=== PATIENT | female | born 1935 | race Caucasian/White ===

== ENCOUNTER → 2017-12-25 | Outpatient (CLI) | payer MEDICARE ==
--- NOTE | 2017-12-25 16:00 | XR ---
EXAMINATION TYPE: XR chest 2V DATE OF EXAM: 12/25/2017 COMPARISON: Prior chest 12/30/2012 HISTORY: Left-sided chest pain, atrioventricular block TECHNIQUE: Frontal and lateral views of the chest are obtained. FINDINGS: Findings are stable. Pacemaker is unchanged. Leads are present in the right atrium and destiney tricle. Arthropathy noted in the shoulders. There is progression of the arthropathy in the right shou lder. No pneumothorax or pleural effusion. Pulmonary vascularity and henrietta are unchanged. No evident a irspace disease. IMPRESSION: No acute cardiopulmonary process. Additional findings above.
== END | disposition home or self-care (01) ==
LOC: RADXRMAIN 14:43
PROVIDERS: ATTEND Internal Medicine Cardiovascular Disease
DX: I44.2 Atrioventricular block, complete (principal); Z95.0 Presence of cardiac pacemaker
CPT/HCPCS: 71046

== ENCOUNTER 2018-11-04 06:46 | Day surgery (SDC) | payer MEDICARE ==
[2018-10-30 11:10] VITALS: BMI 25.4
[~2018-11-04 06:46] MED LIST: LACTATED RINGERS 1,000 ML IV SCH; LIDOCAINE 1% 20 ML VIAL (10MG/ML) FOR IV START INTRADERMA PRN; TETRACAINE 0.5% OPHTH (PF) DROPS 4 ML BTL OP ONE
[2018-11-04] MEDS: CYCLOPENTOLATE 1% OPHTH SOLN 2 ML BTL OP ONE ×3 (07:08→07:18)
[2018-11-04 07:11] VITALS: TEMP 97.5
[2018-11-04] MEDS: PHENYLEPHRINE 2.5% OPHTH DRP 2ML OP NR ×3 (07:12→07:21)
[2018-11-04 07:14] LABS: Glucose,Whole Blood 141 mg/dL (75-99)
[2018-11-04] MEDS ORDERED: MIDAZOLAM 2 MG/2 ML VIAL ONE (08:10)
[2018-11-04] MEDS ORDERED: fentaNYL (PF) 50 MCG/ML 2 ML AMP ONE (08:10)
[2018-11-04] MEDS ORDERED: EPINEPHrine (PF) 0.3 ML in BALANCED SALT IRRIG SOLN COMB2 500 ML IRRIGATION ONE (08:18)
[2018-11-04] MEDS ORDERED: BALANCED SALT IRRIG SOLN COMB2 15 ML IRRIG.SOLN INTRAOCULA ONE ×2 (08:19→08:24)
[2018-11-04] MEDS ORDERED: DUOVISC KIT (GREEN BOX) INTRAOCULA ONE ×2 (08:19→08:24)
[2018-11-04] MEDS ORDERED: LIDOCAINE 1% (PF) 10MG/ML VIAL SQ ONE ×2 (08:19→08:24)
[2018-11-04] MEDS: MOXIFLOXACIN HCL 0.5% DROPS 3 ML BTL OP ONE ×2 (08:19→08:25)
[2018-11-04] MEDS: TIMOLOL 0.5% OPHTH DROPS 5 ML BTL OP ONE ×2 (08:20→08:25)
--- NOTE | 2018-11-04 08:38 | P.OP ---
Date of Procedure: 11/04/18 Preoperative Diagnosis: NS & CS Postoperative Diagnosis: same Procedure(s) Performed: PIOL, OS Implants: PCB00 21.00 Anesthesia: MAC Surgeon: Fredrick Mesa Estimated Blood Loss (ml): 0 Pathology: none sent Condition: stable Disposition: same day Indications for Procedure: blurry vision Operative Findings: No complications
[2018-11-04 09:03] VITALS: BP 106/58; PULSE 66; RESP 16
--- NOTE | 2018-11-05 05:44 | OP ---
OPERATIVE REPORT DATE OF SURGERY: November 04, 2018. SURGEON: Dr. Fredrick Mesa PREOPERATIVE DIAGNOSIS: Nuclear sclerosis, cortical sclerosis. POSTOPERATIVE DIAGNOSIS: Nuclear sclerosis, cortical sclerosis. OPERATION: Phacoemulsification of cataract and intraocular lens implant of the left eye. ESTIMATED BLOOD LOSS: Zero. SPECIMEN TAKEN: None. NARRATIVE: After obtaining the appropriate consent, the patient was brought to the Operating Room where the patient was placed under cardiac monitoring and prepped and draped in the usual sterile manner. At the 5 o'clock position a 15 degree super sharp blade was used to create a paracentesis followed by instillation of 1% Xylocaine MPF 50:50 mix with BSS into the anterior chamber. This was followed by Duovisc to stabilize the anterior chamber. At the 3 o'clock position a self-sealing corneal flap incision was created using 2.8 mm breonna keratome. A cystotome was used to initiate a continuous tear capsulorrhexis which was completed with the Utrata forceps. A Binkhorst cannula was used to hydrodissect the lens nucleus followed by hydrodelineation. Phacoemulsification of the lens was performed utilizing phaco chop in 13 seconds at 9% power. The remaining cortical material was removed using the irrigation aspiration mode followed by additional 1% Xylocaine MPF into the anterior chamber followed by viscoelastic to stabilize the capsular bag. An TWAN PCB00 21.0 diopters posterior chamber lens was placed into the capsular bag without difficulty. The remaining viscoelastic material was removed from the anterior chamber with the irrigation/aspiration. Balanced salt solution was used to normalize the intraocular pressure. The incision was checked for watertight integrity. The patient then received two drops of 0.5% timolol followed by two drops Vigamox, was lightly patched and shielded in the usual manner. There were no complications from the procedure. The patient tolerated the procedure well and was returned to recovery in good condition. MMODL / IJN: [id number] /
== END 2018-11-04 09:12 | disposition home or self-care (01) ==
LOC: OR 06:46
PROVIDERS: ATTEND Ophthalmology
DX: H25.812 Combined forms of age-related cataract, left eye (principal); H04.209 Unspecified epiphora, unspecified side; H00.026 Hordeolum internum left eye, unspecified eyelid; H00.023 Hordeolum internum right eye, unspecified eyelid; H52.223 Regular astigmatism, bilateral; H52.03 Hypermetropia, bilateral; H52.4 Presbyopia; I11.9 Hypertensive heart disease without heart failure; E11.9 Type 2 diabetes mellitus without complications; E78.5 Hyperlipidemia, unspecified; Z95.0 Presence of cardiac pacemaker; R00.1 Bradycardia, unspecified; G43.909 Migraine, unspecified, not intractable, without status migrainosus; H90.5 Unspecified sensorineural hearing loss; Z79.84 Long term (current) use of oral hypoglycemic drugs; Z79.899 Other long term (current) drug therapy; Z83.3 Family history of diabetes mellitus; Z82.49 Family history of ischemic heart disease and other diseases of the circulatory system
CPT/HCPCS: 66984; C1780; J2250; J0171; J3010; J2001

== ENCOUNTER 2018-12-02 09:20 | Day surgery (SDC) | payer MEDICARE ==
[2018-11-26 15:17] VITALS: BMI 24.0
[~2018-12-02 09:20] MED LIST changes: -LIDOCAINE 1% 20 ML VIAL (10MG/ML) FOR IV START INTRADERMA PRN; +MOXIFLOXACIN HCL 0.5% DROPS 3 ML BTL OP ONE; +TIMOLOL 0.5% OPHTH DROPS 5 ML BTL OP ONE
[2018-12-02 10:11] VITALS: TEMP 98.1
[2018-12-02] MEDS: PHENYLEPHRINE 2.5% OPHTH DRP 2ML OP NR ×3 (10:14→10:27)
[2018-12-02] MEDS: CYCLOPENTOLATE 1% OPHTH SOLN 2 ML BTL OP ONE ×3 (10:17→10:30)
[2018-12-02 10:25] LABS: Glucose,Whole Blood 137 mg/dL (75-99)
[2018-12-02] MEDS ORDERED: MIDAZOLAM 2 MG/2 ML VIAL ONE (11:05)
[2018-12-02] MEDS ORDERED: HYALURONATE SODIUM INTRAOCULAR 1 EACH SYRINGE (10MG/ML) INTRAOCULA ONE (11:19)
[2018-12-02] MEDS ORDERED: CHONDROITIN-SOD HYALURONATE 1 EACH SYRINGE (0.75 ML) INTRAOCULA ONE (11:19)
[2018-12-02] MEDS ORDERED: BALANCED SALT IRRIG SOLN COMB2 15 ML IRRIG.SOLN INTRAOCULA ONE (11:19)
[2018-12-02] MEDS ORDERED: LIDOCAINE 1% (PF) 10MG/ML VIAL SQ ONE (11:20)
[2018-12-02] MEDS ORDERED: EPINEPHrine (PF) 0.3 ML in BALANCED SALT IRRIG SOLN COMB2 500 ML IRRIGATION ONE (11:20)
[2018-12-02] MEDS ORDERED: DUOVISC KIT (GREEN BOX) INTRAOCULA ONE (11:36)
--- NOTE | 2018-12-02 11:39 | P.OP ---
Date of Procedure: 12/02/18 Preoperative Diagnosis: NS & CS Postoperative Diagnosis: same Procedure(s) Performed: PIOL< OD Implants: PCB00 21.50 Anesthesia: MAC Surgeon: Fredrick Mesa Estimated Blood Loss (ml): 0 Pathology: none sent Condition: stable Disposition: same day Indications for Procedure: blurry vision Operative Findings: no complications
[2018-12-02 11:46] VITALS: RESP 18
[2018-12-02 12:08] VITALS: BP 102/58; PULSE 66
--- NOTE | 2018-12-02 22:41 | OP ---
OPERATIVE REPORT DATE OF SURGERY: December 02, 2018. PROCEDURE PERFORMED: Phacoemulsification of cataract and intraocular lens implant of the right eye. PREOPERATIVE DIAGNOSES: Nuclear sclerosis. Cortical sclerosis. POSTOPERATIVE DIAGNOSES: Nuclear sclerosis. Cortical sclerosis. OPERATION: Clear cornea phacoemulsification of cataract right OD eye. ESTIMATED BLOOD LOSS: Zero. SPECIMEN TAKEN: None. NARRATIVE: After obtaining the appropriate consent, the patient was brought to the Operating Room where the patient was placed under cardiac monitoring and prepped and draped in the usual sterile manner. At the 11 o'clock position a 15 degree super sharp blade was used to create a paracentesis followed by instillation of 1% Xylocaine MPF 50:50 mix with BSS into the anterior chamber. This was followed by Duovisc to stabilize the anterior chamber. At the 9 o'clock position a self-sealing corneal flap incision was created using 2.8 mm breonna keratome. A cystatome was used to initiate a continuous tear capsulorrhexis which was completed with the Utrata forceps. A Binkhorst cannula was used to hydrodissect the lens nucleus followed by hydrodelineation. Phacoemulsification of the lens was performed utilizing phaco-chop in 19.84 seconds at 11% power. The remaining cortical material was removed using the irrigation aspiration mode followed by additional 1% Xylocaine MPF into the anterior chamber followed by viscoelastic to stabilize the capsular bag. An [employer] model PZB 00 21.5 diopter posterior chamber lens was placed into the capsular bag without difficulty. The remaining viscoelastic material was removed from the anterior chamber with the irrigation/aspiration. Balanced salt solution was used to normalize the intraocular pressure. The incision was checked for watertight integrity. The patient then received two drops of 0.5% timolol followed by two drops Vigamox, was lightly patched and shielded in the usual manner. There were no complications from the procedure. The patient tolerated the procedure well and was returned to recovery in good condition. MMODL / IJN: [id number] /
== END 2018-12-02 12:31 | disposition home or self-care (01) ==
LOC: OR 09:20
PROVIDERS: ATTEND Ophthalmology
DX: E11.36 Type 2 diabetes mellitus with diabetic cataract (principal); I10 Essential (primary) hypertension; H00.026 Hordeolum internum left eye, unspecified eyelid; H00.023 Hordeolum internum right eye, unspecified eyelid; H52.03 Hypermetropia, bilateral; H52.223 Regular astigmatism, bilateral; H52.4 Presbyopia; G43.909 Migraine, unspecified, not intractable, without status migrainosus; Z98.42 Cataract extraction status, left eye; Z96.1 Presence of intraocular lens; Z79.899 Other long term (current) drug therapy; Z79.84 Long term (current) use of oral hypoglycemic drugs; Z95.0 Presence of cardiac pacemaker; Z79.82 Long term (current) use of aspirin
CPT/HCPCS: 66984; C1780; J2250; J0171; J2001

== ENCOUNTER → 2021-04-13 | Outpatient (CLI) | payer MEDICARE ==
--- NOTE | 2021-04-13 15:13 | BD ---
EXAMINATION TYPE: Axial Bone Density DATE OF EXAM: 04/13/2021 COMPARISON: NONE CLINICAL HISTORY: 85 YR OLD FEMALE....ICD-10 CODE: M85.88 DISORDER OF BD Height: 58.3 Weight: 122 FRAX RISK QUESTIONS: NOTHING ADDITIONAL TO ADD HERE RISK FACTORS HISTORY OF: Postmenopausal woman: AT AGE 49 YRS OLD Lost more than 2 inches in height since high school: YES Frequent falls: UNSTEADY GAIT Hyperparathyroidism: NO Adrenal Insufficiency: NO MEDICATIONS: Additional Medications: BP MEDS, METFORMIN, ANTI SEIZURE, AND MIGRAINE MEDS Additional History: HYPERTENSION, DIABETIC, MIGRAINE HEADACHES, EXAM MEASUREMENTS: Bone mineral densitometry was performed using the [employer] System. Bone mineral density as measured about the Lumbar spine is: ----- L1-L4(G/cm2): 1.553 T Score Values are as follows: -----L1: 2.1 ----- L2: 2.2 ----- L3: 2.6 ----- L4: 5.3 ----- L1-L4: 3.1 Bone mineral density PT STATES IT IS HER FIRST DEXA SCAN......BASELINE Bone mineral density about the R hip (g/cm2): 0.779 Bone mineral density about the L hip (g/cm2): 0.840 T Score values are as follows: -----R Neck: -2.0 -----L Neck: -2.2 -----R Total: -1.8 -----L Total: -1.3 Bone mineral density FIRST DEXA........BASELINE STUDY FRAX%S: THERE IS A 16.8% CHANCE FOR A MAJOR OSTEOPOROTIC FX AND A 5.7% FOR HIP......PROBABILITY FO R FX IN 10 YRS TIME IMPRESSION: Osteopenia (T Score between -2.5 and -1). There is slightly increased risk of fracture and the patient may be considered for treatment. Re-Screen 2-5 years. NOTE: T-SCORE=SD OF THE YOUNG ADULT MEAN.
== END | disposition home or self-care (01) ==
LOC: RADBDWWP 09:46
PROVIDERS: ATTEND Internal Medicine
DX: M85.89 Other specified disorders of bone density and structure, multiple sites (principal); I10 Essential (primary) hypertension; Z13.820 Encounter for screening for osteoporosis; E11.9 Type 2 diabetes mellitus without complications
CPT/HCPCS: 77080

== ENCOUNTER 2021-04-23 05:51 | Day surgery (SDC) | payer MEDICARE ==
[2021-04-19 14:53] VITALS: BMI 22.8
[2021-04-23] MEDS ORDERED: MIDAZOLAM 2 MG/2 ML VIAL IV PRN (06:04)
[2021-04-23] MEDS ORDERED: LACTATED RINGERS 1,000 ML IV SCH (06:04)
[2021-04-23] MEDS ORDERED: SODIUM CHLORIDE 0.9% 1,000 ML IV SCH ×2 (06:04)
[2021-04-23] MEDS ORDERED: ceFAZolin 1 GM in SODIUM CHLORIDE 0.9% 250 ML IRRIGATION PRN (06:30)
[2021-04-23 06:41] LABS: Glucose,Whole Blood 155 mg/dL (75-99)
[2021-04-23 06:47] VITALS: RESP 18; TEMP 97.9
[2021-04-23] MEDS ORDERED: HYDROmorphone 0.5 MG/0.5 ML SYRINGE IVP PRN (07:00)
[2021-04-23] MEDS ORDERED: MIDAZOLAM 2 MG/2 ML VIAL ONE (07:14)
[2021-04-23] MEDS ORDERED: PROPOFOL 10 MG/ML 20 ML VIAL IV ONE (07:14)
[2021-04-23] MEDS ORDERED: fentaNYL (PF) 50 MCG/ML 2 ML AMP ONE (07:14)
[2021-04-23 07:23] LABS: Basophils # (A) 0.1 k/uL (0-0.2); Basophils % (A) 1 %; Eosinophils # (A) 0.2 k/uL (0-0.7); Eosinophils % (A) 2 %; HCT 37.9 % (34.0-46.0); HGB 12.7 gm/dL (11.4-16.0); Lymphocytes # (A) 1.7 k/uL (1.0-4.8); Lymphocytes % (A) 16 %; MCH 30.6 pg (25.0-35.0); MCHC 33.5 g/dL (31.0-37.0); MCV 91.2 fL (80.0-100.0); Mean Platelet Volume 8.1; Monocytes # (A) 0.5 k/uL (0-1.0); Monocytes % (A) 5 %; Neutrophils # (A) 7.8 k/uL (1.3-7.7); Neutrophils % (A) 75 %; Platelet Count 296 k/uL (150-450); RBC 4.15 m/uL (3.80-5.40); RDW 12.8 % (11.5-15.5); WBC 10.5 k/uL (3.8-10.6)
[2021-04-23] MEDS ORDERED: LIDOCAINE 1% INJ 10MG/ML (20 ML MDV) ONE ×2 (07:26→08:27)
[2021-04-23 07:39] LABS: Potassium 4.4 mmol/L (3.5-5.1)
[2021-04-23] MEDS ORDERED: IOPAMIDOL-370 50ML BTL INJ ONE (07:43)
--- NOTE | 2021-04-23 07:55 | P.EPPROC ---
- EP Procedure Note Electrophysiology Procedure Note: Patient is complete heart block Status post permanent pacemaker implantation in 1998 and subsequently pacemaker generator change thereafter Device is at end-of-life and cannot be interrogated Twelve-lead EKG shows a paced rhythm A limited 2-D echo was performed to assess LV function Normal LV function noted Left upper extremity venogram was performed 10 mL every dye injected in the left arm 8 and left subclavian and axillary vein and innominate system Cinefluoroscopy of the leads performed Dual-chamber device noted No fractures or breaks noted Atrial lead chronically positioned in the right atrial appendage RV lead positioned in the RV apex Plan TVP Pacemaker generator change Interrogation of the leads intraoperatively and if they are functioning normally then a dual-chamber pacemaker generator will be performed
[2021-04-23] MEDS ORDERED: LIDOCAINE 1% INJ 10MG/ML (20 ML MDV) SQ ONE ×2 (07:58)
--- NOTE | 2021-04-23 08:23 | P.EPPROC ---
- EP Procedure Note Electrophysiology Procedure Note: Transvenous temporary pacing procedure Indication for the procedure: Severe underlying bradycardia/complete heart block/dual-chamber pacemaker device at end-of-life, not programmable Patient was brought to the EP lab in a fasting state. Written informed consent was obtained prior to the procedure. The right groin was prepped and draped as a protocol. A 6-Fijian sheath was placed in the right femoral vein. Via this, a temporary pacing catheter was placed in the right ventricle. Thresholds were interrogated. Temporary pacing was performed through the rest of the procedure. At the end of the entire procedure, the TVP was removed. The sheath was removed and hemostasis was assured. Patient tolerated the procedure well without any acute complications. Procedure performed Transvenous temporary pacing
--- NOTE | 2021-04-23 09:15 | P.EPPROC ---
- EP Procedure Note Electrophysiology Procedure Note: Diagnoses Device at EOL Complete heart block Normal LV size and function on 2-D echo Details The left pectoral area was prepped and draped as per protocol IV antibiotics were administered An incision was made directly over the previous surgical site Subcutaneously located device A completely new subfascial pocket was made Hemostasis was assured Leads were freed from the soft tissue Leads were interrogated Impedances elevated in the RV lead but stable Atrial pacing threshold 0.9 V at 0.4 ms, pacing impedance 418 ohms, P waves 1.1 mV Guidant lead serial #[id number] and model #4271 RV lead was a Guidant model #4034, serial #[id number] Pacing threshold 2.1 V at 1 ms pacing impedance 1482 ohms, no R waves Old generator explanted, [employer] [id number], serial #[id number] New device implanted, Ouner model number W1 DR 01, serial number [id number] Device programmed to DDDR 50-1:30 bpm Pacing thresholds and impedances stable after connecting leads to the device Wound closed in 3 layers and dressed per protocol Result New subfascial pocket Dual-chamber pacemaker generator change
[2021-04-23] MEDS ORDERED: ACETAMINOPHEN TAB 325 MG TAB PO PRN (09:17)
[2021-04-23] MEDS ORDERED: ACETAMINOPHEN IV (For NPO) 1,000 MG in EMPTY BAG 1 BAG IVPB ONE (09:17)
[2021-04-23 14:17] VITALS: BP 118/58; PULSE 67
== END 2021-04-23 15:15 | disposition home or self-care (01) ==
LOC: CATHEP 05:51
PROVIDERS: ATTEND Internal Medicine Clinical Cardiac Electrophysiology
DX: I44.2 Atrioventricular block, complete (principal)
CPT/HCPCS: 93308; 33228; 80048; 85025; C1894; C1769 ×3; C1785; J2250; J0690; J2001; J3010; J2704; Q9967

== ENCOUNTER → 2021-12-28 | Outpatient (CLI) | payer MEDICARE ==
--- NOTE | 2021-12-28 09:09 | US ---
EXAMINATION TYPE: US abdomen complete DATE OF EXAM: 12/28/2021 COMPARISON: NONE CLINICAL HISTORY: R79.89 ELEVATED LIVER FUNCTION TEST. Elevated labs, pt has no other complaints at t his time EXAM MEASUREMENTS: Liver Length: 11.9 cm Gallbladder Wall: 0.2 cm CBD: 0.4 cm Spleen: 8.9 cm Right Kidney: 9.2 x 4.5 x 4.7 cm Left Kidney: 9.0 x 4.7 x 4.8 cm Pancreas: wnl, tail obscured by overlying bowel gas Liver: Visualized portions appeared wnl Gallbladder: Mobile gallstones, wall not thickened Evidence for sonographic Hall's sign: No CBD: wnl Spleen: Difficult to visualize Right Kidney: Cyst mid= 2.5 x 2.3 x 2.2 cm Left Kidney: No evidence of hydro, upper and lower poles gassed out Upper IVC: wnl Abd Aorta: Wall calcifications, no evidence of AAA The liver is homogenous. The intrahepatic portion of the IVC and proximal abdominal aorta are within normal limits. Common bile duct is unremarkable. The visualized portions of the pancreas are homog enous. The spleen is unremarkable. Kidneys are symmetric and free of hydronephrosis. No solid brayan l lesions are seen. IMPRESSION: 1. Uncomplicated cholelithiasis.
== END | disposition home or self-care (01) ==
LOC: RADUSWWP 08:11
PROVIDERS: ATTEND Internal Medicine
DX: K80.20 Calculus of gallbladder without cholecystitis without obstruction (principal); R79.89 Other specified abnormal findings of blood chemistry
CPT/HCPCS: 76700

== ENCOUNTER → 2022-12-30 | Day surgery (SDC) | payer MEDICARE ==
[~2022-12-30] MED LIST changes: +IOPAMIDOL-370 100ML BTL IVP ONE; -LACTATED RINGERS 1,000 ML IV SCH; -MOXIFLOXACIN HCL 0.5% DROPS 3 ML BTL OP ONE; +SODIUM CHLORIDE 0.9% 1,000 ML IV SCH; +SODIUM CHLORIDE 0.9% 500 ML 500 ML IV ONE; -TETRACAINE 0.5% OPHTH (PF) DROPS 4 ML BTL OP ONE; -TIMOLOL 0.5% OPHTH DROPS 5 ML BTL OP ONE
[2022-12-30 10:13] LABS: Glucose,Whole Blood 154 mg/dL (70-110)
[2022-12-30 10:14] VITALS: BP 147/67; PULSE 61; RESP 16; TEMP 97.4
--- NOTE | 2022-12-30 11:00 | P.EPPROC ---
- EP Procedure Note Electrophysiology Procedure Note: Diagnosis Complete heart block status post dual-chamber pacemaker Patient is 100% RV paced High RV thresholds Cine fluoroscopy of the leads No fractures or breaks noted Left upper extremity venogram Patent left axillary and subclavian venous system Patent innominate vein and SVC Plan Patient is awaiting a 2-D echo and Doppler study to assess LV function If the ejection fraction is less than 50% then we will proceed with implantation of a new ventricular lead for cardiac conduction system pacing If LV function is normal then a new RV lead replaced at the time of generator change/at the time of battery depletion
== END ==
LOC: CATHEP 09:49
PROVIDERS: ATTEND Internal Medicine Clinical Cardiac Electrophysiology
DX: I44.2 Atrioventricular block, complete (principal); I10 Essential (primary) hypertension; E78.5 Hyperlipidemia, unspecified; E11.9 Type 2 diabetes mellitus without complications; I48.0 Paroxysmal atrial fibrillation; F17.210 Nicotine dependence, cigarettes, uncomplicated; Z95.0 Presence of cardiac pacemaker; Z79.84 Long term (current) use of oral hypoglycemic drugs; Z79.899 Other long term (current) drug therapy
CPT/HCPCS: 36005; 75820; Q9967

== ENCOUNTER → 2024-09-13 | Outpatient (CLI) | payer MEDICARE | END | disposition home or self-care (01) | LOC: LABWHC1 10:31 | PROVIDERS: ATTEND Internal Medicine | DX: E83.52 Hypercalcemia (principal); N18.30 Chronic kidney disease, stage 3 unspecified | CPT/HCPCS: 36415; 82306; 83970 ==

== ENCOUNTER → 2024-09-15 | Outpatient (CLI) | payer MEDICARE ==
[2024-09-15 19:38] LABS: Microalbumin Creatinine Ratio <24 mg/g Cr (0-30)
== END | disposition home or self-care (01) ==
LOC: LABWHC1 09:56
PROVIDERS: ATTEND Internal Medicine
DX: N18.30 Chronic kidney disease, stage 3 unspecified (principal)
CPT/HCPCS: 82043; 82570

== ENCOUNTER → 2025-01-03 | Outpatient (CLI) | payer MEDICARE ==
--- NOTE | 2025-01-04 07:57 | CT ---
EXAMINATION TYPE: CT ChestAbdPelvis wo con CT DLP: 420.4 mGycm, Automated exposure control for dose reduction was used. 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 Oral contrast was administered. Two-dimensional coronal and sagittal reconstructions were o btained. Findings: Limited examination due to lack of intravenous contrast. CHEST: LUNGS/ PLEURA: No pleural effusion, pneumothorax, focal consolidation. Minimal bilateral lower lobe d ependent subsegmental atelectasis. No clinically significant pulmonary nodule. AIRWAY: Patent and unremarkable.. HEART: Cardiomegaly is demonstrated.Small aortic valvular calcifications. No pericardial effusion. Se [place] coronary artery calcifications present. MEDIASTINUM: No gross evidence of adenopathy. VASCULATURE: No aortic aneurysm. Atherosclerotic calcification of the aorta and its branches. Left a nterior chest wall cardiac pacemaker device with leads terminating in the right atrium and right vent ricle. MUSCULOSKELETAL: No acute osseous abnormalities. Advanced osteoarthritic changes of both shoulders wi th right greater than left. Multilevel degenerative disc disease. DISH of the thoracic spine. SOFT TISSUES/LYMPH NODES: Unremarkable. LOWER NECK: No significant findings. ABDOMEN: ABDOMEN LIVER: Unremarkable noncontrast appearance GALLBLADDER AND BILE DUCTS: Layering increased densities within the lumen consistent with gallstones are present. No biliary ductal dilatation. PANCREAS: Unremarkable noncontrast appearance SPLEEN: Unremarkable noncontrast appearance ADRENAL GLANDS: Unremarkable noncontrast appearance. KIDNEYS AND URETERS: No evidence of hydronephrosis. Nonobstructing right renal lower pole 5 mm calcul us. No left renal calculi. Right mid kidney 2.6 cm simple appearing cyst. No follow-up recommended. PELVIS BLADDER: Unremarkable REPRODUCTIVE: Uterus with calcified fibroid changes. Bulky appearance within the region of the lower uterine segment/cervix measuring up to 4.8 cm. ABDOMEN & PELVIS STOMACH AND BOWEL: Stomach and duodenum are unremarkable. Enteric contrast reaches the hepatic flexur e. Moderate amount of stool is present within the colon. No evidence of bowel obstruction. PERITONEUM: No evidence of pneumoperitoneum or free fluid. VASCULATURE: Moderate atherosclerotic calcifications are present throughout the abdominal aorta and i ts branches. No abdominal aortic aneurysm. Pelvic phleboliths. MUSCULOSKELETAL: No acute osseous abnormalities. Advanced degenerative disease of the lumbar spine. G rade 1 anterolisthesis of L4 on L5 with left-sided pars defect. Advanced multilevel facet arthropathy . Mild S-shaped scoliotic curvature of the lower thoracolumbar spine. LYMPH NODES: No gross evidence for lymphadenopathy. SOFT TISSUE/ABDOMINAL WALL: Unremarkable IMPRESSION: 1. No definitive evidence for metastasis however evaluation is significantly limited due to lack of i ntravenous contrast. 2. Fibroid changes of the uterus with bulky enlarged appearance of the region of the lower uterine se gment/cervix. Underlying fibroid may be present however underlying malignancy is not excluded. Recomm end further evaluation with direct visualization and/or ultrasound. 3. Nonobstructing right renal calculus. [facility], , 01/04/2025 7:54 AM
== END | disposition home or self-care (01) ==
LOC: RADCTMAIN 13:48
PROVIDERS: ATTEND Internal Medicine
DX: C43.9 Malignant melanoma of skin, unspecified (principal); N20.0 Calculus of kidney; N85.2 Hypertrophy of uterus
CPT/HCPCS: 71250; 74176